=== PATIENT | male | born 1960 | race African-American/Black ===

== ENCOUNTER 2018-08-12 18:18 | Emergency (ER) | payer OTHER ==
[2018-08-12] MEDS ORDERED: LORAZEPAM 1 MG TAB PO (19:00)
== END 2018-08-12 19:18 | disposition home or self-care (01) ==
LOC: E/R 18:18
DX: M79.604 Pain in right leg (principal); I10 Essential (primary) hypertension; Z79.82 Long term (current) use of aspirin; Z87.891 Personal history of nicotine dependence; Z98.61 Coronary angioplasty status
CPT/HCPCS: 99283; Z7502